=== PATIENT | male | born 1995 | race Caucasian/White ===

== ENCOUNTER 2017-06-24 17:26 | Emergency (ER) | payer OTHER ==
[~2017-06-24] VITALS: Ht 167.6 cm; Wt 55.9 kg
[2017-06-24] MEDS ORDERED: MULT1CHW39 PO (17:39)
--- NOTE | 2017-06-24 18:40 | REPUSA ---
CT of the head Clinical history: trauma. Technique: Multiple axial CT images were obtained through the head without administration of contrast . Findings: The ventricles and sulci are symmetric bilaterally. There is no evidence of acute hemorrhag e or infarct. There is no midline shift, mass effect, or extra-axial fluid collection. The osseous st ructures are unremarkable. The visualized paranasal sinuses and mastoid air cells are clear. Impression: Negative study.
[2017-06-24 19:11] VITALS: BP 118/74
== END 2017-06-24 19:13 | disposition home or self-care (01) ==
LOC: M ED 17:26
DX: R51 Headache (principal); V48.0XXA Car driver injured in noncollision transport accident in nontraffic accident, initial encounter; Y92.9 Unspecified place or not applicable; Y93.9 Activity, unspecified; Y99.9 Unspecified external cause status; F17.200 Nicotine dependence, unspecified, uncomplicated; Z79.899 Other long term (current) drug therapy

== ENCOUNTER 2018-01-19 17:58 | Emergency (ER) | payer OTHER ==
[2018-01-19] MEDS: LIDOCAINE 2% MDV 20 ML VIAL SC (18:37)
[2018-01-19] MEDS: CEPHALEXIN 500 MG CAP PO (19:05)
== END 2018-01-19 19:10 | disposition home or self-care (01) ==
LOC: M ED 17:58
DX: S60.455A Superficial foreign body of left ring finger, initial encounter (principal); X58.XXXA Exposure to other specified factors, initial encounter; Y92.9 Unspecified place or not applicable; Y93.9 Activity, unspecified; Y99.1 Military activity; Z87.891 Personal history of nicotine dependence; Z79.899 Other long term (current) drug therapy
CPT/HCPCS: 10120

== ENCOUNTER 2018-05-14 09:52 | Day surgery (SDC) | payer OTHER ==
[2018-05-14] MEDS: LR 1,000 ML IV ×2 (10:34→14:12)
[2018-05-14] MEDS ORDERED: LIDOCAINE 2% INJ 100 MG/5 ML SDV (FOR ANES.) As Ordered (12:15)
[2018-05-14] MEDS ORDERED: PROPOFOL 200 MG/20 ML VIAL As Ordered (12:15)
[2018-05-14] MEDS ORDERED: ROCURONIUM BROMIDE 50 MG/5 ML VIAL As Ordered (12:15)
[2018-05-14] MEDS ORDERED: fentaNYL 100 MCG/2 ML INJECTION (J3010) As Ordered ×2 (12:18→13:30)
[2018-05-14] MEDS ORDERED: MIDAZOLAM INJ 2 MG/2 ML VIAL (J2250) As Ordered (12:18)
[2018-05-14] MEDS: METHYLENE BLUE 0.5% (5MG/ML) 10 ML AMP (PROVAYBLUE)(Q9968 PER 1MG) As Ordered (13:00)
[2018-05-14] MEDS: LIDOCAINE W/EPINEPHRINE 1% 20ML VIAL As Ordered (13:00)
[2018-05-14] MEDS: OXYMETAZOLINE NASAL SPRAY (AFRIN) As Ordered (13:00)
[2018-05-14] MEDS ORDERED: GLYCOPYRROLATE INJ 0.2 MG/ML 2 ML VIAL As Ordered (13:37)
[2018-05-14] MEDS ORDERED: dexameTHASONE 4 MG/ML 1ML VIAL (J1100) As Ordered ×2 (13:37)
[2018-05-14] MEDS ORDERED: ONDANSETRON 4MG/2ML VIAL (J2405) As Ordered (13:37)
[2018-05-14] MEDS ORDERED: MEPERIDINE INJ 25 MG/ML VIAL (J2175) As Ordered (14:24)
[2018-05-14] MEDS: MEPERIDINE INJ 25 MG/ML VIAL (J2175) IV ×2 (14:25→14:30)
[2018-05-14] MEDS ORDERED: METOCLOPRAMIDE INJ 10MG/2ML VIAL (J2765) IV (14:30)
[2018-05-14] MEDS ORDERED: ONDANSETRON 4MG/2ML VIAL (J2405) IV (14:30)
[2018-05-14] MEDS ORDERED: fentaNYL 100 MCG/2 ML INJECTION (J3010) IV (14:30)
[2018-05-14] MEDS ORDERED: PERCOCET 5MG/325MG TAB PO (14:30)
[2018-05-14] MEDS: PERCOCET 5MG/325MG TAB PO ×2 (15:01→15:31)
== END 2018-05-14 16:06 | disposition home or self-care (01) ==
LOC: M SDC 09:52
DX: J34.2 Deviated nasal septum (principal); J34.3 Hypertrophy of nasal turbinates; R06.83 Snoring; T88.59XD Other complications of anesthesia, subsequent encounter; Z87.891 Personal history of nicotine dependence
CPT/HCPCS: 30520